=== PATIENT | female | born 1975 | race Two or more races ===

== ENCOUNTER 2021-04-01 13:28 | Emergency (ER) | payer SELFPAY ==
[~2021-04-01] VITALS: Ht 152.4 cm; Wt 80.3 kg
[2021-04-01] MEDS ORDERED: ASPIRIN CHEWABLE 81 MG TABLET. PO ONE (14:15)
[2021-04-01] MEDS ORDERED: IV RINGERS,LACTATED 1000ML 1,000 ML IV ONE (14:15)
--- NOTE | 2021-04-01 14:49 | RAD ---
EXAM: AP View of the chest DATE: 04/01/2021 2:25 PM INDICATION: Reason: lightheaded, R sided pain / Spl. Instructions: / History: COMPARISON: No Prior FINDINGS: The heart is not enlarged. Mediastinal and hilar contours are normal. No focal parenchymal airspace opacity. Low lung volumes. No pleural effusion or pneumothorax. IMPRESSION: 1. No radiographic evidence for acute cardiopulmonary process. Electronically signed by: Kermit Trujillo MD (04/01/2021 2:46 PM) CLAUDIA
[2021-04-01 14:53] LABS: BASO # 0.1 x10^3/uL (0.0-0.2); BASO % 1 % (0-3); EOS % 10 % (0-3); HEMATOCRIT 33.9 % (36.0-47.0); HEMOGLOBIN 10.7 g/dL (12.0-15.5); LYMPH # 1.9 x10^3/uL (1.0-4.8); LYMPH % 19 % (24-48); MEAN CORPUSCULAR HEMOGLOBIN 24 pg (25-35); MEAN CORPUSCULAR HGB CONC 32 g/dL (31-37); MEAN CORPUSCULAR VOLUME 76 fL (79-100); MONO # 0.6 x10^3/uL (0.0-1.1); MONO % 6 % (0-9); NEUT # 6.5 x10^3/uL (1.8-7.7); NEUT % 65 % (31-73); PLATELET COUNT 350 x10^3/uL (140-400); RED BLOOD COUNT 4.44 x10^6/uL (3.50-5.40); RED CELL DISTRIBUTION WIDTH 17.9 % (11.5-14.5)
[2021-04-01 15:00] LABS: CALCIUM 9.2 mg/dL (8.5-10.1); CREATININE 0.7 mg/dL (0.6-1.0); GFR 90.1; POTASSIUM 4.8 mmol/L (3.5-5.1)
[2021-04-01 15:06] LABS: ALBUMIN 3.7 g/dL (3.4-5.0); ALBUMIN/GLOBULIN RATIO 0.7 (1.0-1.7); TOTAL BILIRUBIN 0.5 mg/dL (0.2-1.0); TOTAL PROTEIN 8.8 g/dL (6.4-8.2)
--- NOTE | 2021-04-01 15:38 | PHYS DOC ---
Past Medical History Past Medical History: Diabetes-Type II, High Cholesterol, Hypertension Past Surgical History: Smoking Status: Never Smoker Alcohol Use: Occasionally Drug Use: None Adult General Chief Complaint Chief Complaint: DIZZY/LIGHT HEADED HPI HPI Patient is a 45 year old female with past medical history of DMII, HTN, HLD who presents with lightheadedness and right-sided neck, shoulder and arm pain that began yesterday. Patient states her pain is 8/10, constant and unchanged since onset. She denies any inciting events. There are no exacerbating or remitting factors. Patient has not taken any medication in effort to relieve this pain. She denies blurred vision, visual field deficits, eye pain, chest pain, palpitations, diaphoresis, nausea or vomiting. Review of Systems Review of Systems Constitutional: Denies fever or chills Eyes: See HPI HENT: Denies nasal congestion or sore throat Respiratory: Denies cough or shortness of breath Cardiovascular: No additional information not addressed in HPI GI: See HPI : Denies dysuria or hematuria Musculoskeletal: See HPI Integument: Denies rash or skin lesions Neurologic: Denies headache, focal weakness or sensory changes Endocrine: Denies polyuria or polydipsia All other systems were reviewed and found to be within normal limits, except as documented in this note. Current Medications Current Medications Current Medications Medications (Trade) Dose Ordered Sig/Makeda Start Time Stop Time Status Last Admin Dose Admin Aspirin (Aspirin Chewable) 324 mg 1X ONCE 04/01/21 14:15 04/01/21 14:24 DC 04/01/21 14:40 324 MG Ringer's Solution 1,000 ml @ 1,000 mls/hr 1X ONCE 04/01/21 14:15 04/01/21 15:14 DC 04/01/21 14:40 1,000 MLS/HR Allergies Allergies Allergies Coded Allergies Type Severity Reaction Last Updated Verified No Known Drug Allergies 04/01/21 No Physical Exam Physical Exam Constitutional: Obese, well groomed, no acute distress, non-toxic appearance. HENT: Normocephalic, atraumatic, bilateral external ears normal, nose normal. Eyes: EOMI, conjunctiva normal, no discharge. Neck: Normal range of motion, no tenderness, supple, no stridor. Cardiovascular: Heart rate regular rhythm, no murmur. Lungs & Thorax: Bilateral breath sounds clear to auscultation. Skin: Warm, dry, no erythema, no rash. Extremities: No tenderness, no cyanosis, no clubbing, ROM intact, no edema, no deformity, distal pulses 2+ and symmetrical. Neurologic: Alert and oriented x4, steady and symmetrical gait, no focal deficits noted. Current Patient Data Vital Signs Vital Signs Date Time Temp Pulse Resp B/P (MAP) Pulse Ox O2 Delivery O2 Flow Rate FiO2 04/01/21 16:32 88 137/65 (89) 99 Room Air 04/01/21 14:05 98.3 18 98.3 Lab Values Laboratory Tests Test 04/01/21 14:11 04/01/21 14:37 04/01/21 16:50 Glucose (Fingerstick) 109 mg/dL (70-99) H White Blood Count 10.0 x10^3/uL (4.0-11.0) Red Blood Count 4.44 x10^6/uL (3.50-5.40) Hemoglobin 10.7 g/dL (12.0-15.5) L Hematocrit 33.9 % (36.0-47.0) L Mean Corpuscular Volume 76 fL (79-100) L Mean Corpuscular Hemoglobin 24 pg (25-35) L Mean Corpuscular Hemoglobin Concent 32 g/dL (31-37) Red Cell Distribution Width 17.9 % (11.5-14.5) H Platelet Count 350 x10^3/uL (140-400) Neutrophils (%) (Auto) 65 % (31-73) Lymphocytes (%) (Auto) 19 % (24-48) L Monocytes (%) (Auto) 6 % (0-9) Eosinophils (%) (Auto) 10 % (0-3) H Basophils (%) (Auto) 1 % (0-3) Neutrophils # (Auto) 6.5 x10^3/uL (1.8-7.7) Lymphocytes # (Auto) 1.9 x10^3/uL (1.0-4.8) Monocytes # (Auto) 0.6 x10^3/uL (0.0-1.1) Eosinophils # (Auto) 1.0 x10^3/uL (0.0-0.7) H Basophils # (Auto) 0.1 x10^3/uL (0.0-0.2) Sodium Level 141 mmol/L (136-145) Potassium Level 4.8 mmol/L (3.5-5.1) Chloride Level 100 mmol/L (98-107) Carbon Dioxide Level 25 mmol/L (21-32) Anion Gap 16 (6-14) H Blood Urea Nitrogen 9 mg/dL (7-20) Creatinine 0.7 mg/dL (0.6-1.0) Estimated GFR (Cockcroft-Gault) 90.1 BUN/Creatinine Ratio 13 (6-20) Glucose Level 119 mg/dL (70-99) H Calcium Level 9.2 mg/dL (8.5-10.1) Total Bilirubin 0.5 mg/dL (0.2-1.0) Aspartate Amino Transferase (AST) 27 U/L (15-37) Alanine Aminotransferase (ALT) 31 U/L (14-59) Alkaline Phosphatase 75 U/L (46-116) Troponin I High Sensitivity 6 ng/L (4-50) Total Protein 8.8 g/dL (6.4-8.2) H Albumin 3.7 g/dL (3.4-5.0) Albumin/Globulin Ratio 0.7 (1.0-1.7) L Urine Collection Type Unknown Urine Color Yellow Urine Clarity Clear Urine pH 7.5 (<5.0-8.0) Urine Specific [place] <=1.005 (1.000-1.030) Urine Protein Negative mg/dL (NEG-TRACE) Urine Glucose (UA) Negative mg/dL (NEG) Urine Ketones (Stick) Negative mg/dL (NEG) Urine Blood Negative (NEG) Urine Nitrite Negative (NEG) Urine Bilirubin Negative (NEG) Urine Urobilinogen Dipstick 0.2 mg/dL (0.2 mg/dL) Urine Leukocyte Esterase Negative (NEG) Urine RBC 0 /HPF (0-2) Urine WBC Occ /HPF (0-4) Urine Squamous Epithelial Cells Mod /LPF Urine Bacteria Few /HPF (0-FEW) Laboratory Tests 04/01/21 14:37 Laboratory Tests 04/01/21 14:37 Laboratory Tests Test 04/01/21 14:11 04/01/21 14:37 04/01/21 16:50 Glucose (Fingerstick) 109 mg/dL (70-99) White Blood Count 10.0 x10^3/uL (4.0-11.0) Red Blood Count 4.44 x10^6/uL (3.50-5.40) Hemoglobin 10.7 g/dL (12.0-15.5) Hematocrit 33.9 % (36.0-47.0) Mean Corpuscular Volume 76 fL (79-100) Mean Corpuscular Hemoglobin 24 pg (25-35) Mean Corpuscular Hemoglobin Concent 32 g/dL (31-37) Red Cell Distribution Width 17.9 % (11.5-14.5) Platelet Count 350 x10^3/uL (140-400) Neutrophils (%) (Auto) 65 % (31-73) Lymphocytes (%) (Auto) 19 % (24-48) Monocytes (%) (Auto) 6 % (0-9) Eosinophils (%) (Auto) 10 % (0-3) Basophils (%) (Auto) 1 % (0-3) Neutrophils # (Auto) 6.5 x10^3/uL (1.8-7.7) Lymphocytes # (Auto) 1.9 x10^3/uL (1.0-4.8) Monocytes # (Auto) 0.6 x10^3/uL (0.0-1.1) Eosinophils # (Auto) 1.0 x10^3/uL (0.0-0.7) Basophils # (Auto) 0.1 x10^3/uL (0.0-0.2) Sodium Level 141 mmol/L (136-145) Potassium Level 4.8 mmol/L (3.5-5.1) Chloride Level 100 mmol/L (98-107) Carbon Dioxide Level 25 mmol/L (21-32) Anion Gap 16 (6-14) Blood Urea Nitrogen 9 mg/dL (7-20) Creatinine 0.7 mg/dL (0.6-1.0) Estimated GFR (Cockcroft-Gault) 90.1 BUN/Creatinine Ratio 13 (6-20) Glucose Level 119 mg/dL (70-99) Calcium Level 9.2 mg/dL (8.5-10.1) Total Bilirubin 0.5 mg/dL (0.2-1.0) Aspartate Amino Transf (AST/SGOT) 27 U/L (15-37) Alanine Aminotransferase (ALT/SGPT) 31 U/L (14-59) Alkaline Phosphatase 75 U/L (46-116) Troponin I High Sensitivity 6 ng/L (4-50) Total Protein 8.8 g/dL (6.4-8.2) Albumin 3.7 g/dL (3.4-5.0) Albumin/Globulin Ratio 0.7 (1.0-1.7) Urine Collection Type Unknown Urine Color Yellow Urine Clarity Clear Urine pH 7.5 (<5.0-8.0) Urine Specific [place] <=1.005 (1.000-1.030) Urine Protein Negative mg/dL (NEG-TRACE) Urine Glucose (UA) Negative mg/dL (NEG) Urine Ketones (Stick) Negative mg/dL (NEG) Urine Blood Negative (NEG) Urine Nitrite Negative (NEG) Urine Bilirubin Negative (NEG) Urine Urobilinogen Dipstick 0.2 mg/dL (0.2 mg/dL) Urine Leukocyte Esterase Negative (NEG) Urine RBC 0 /HPF (0-2) Urine WBC Occ /HPF (0-4) Urine Squamous Epithelial Cells Mod /LPF Urine Bacteria Few /HPF (0-FEW) EKG EKG EKG Interpreted by Dr. Andrew at 1420: Regular rate and rhythm 86 bpm with no ectopic beats. QT 366 ms/QTc 441 ms. No STEMI. Radiology/Procedures Radiology/Procedures PROCEDURE: CHEST AP ONLY EXAM: AP View of the chest DATE: 04/01/2021 2:25 PM INDICATION: Reason: lightheaded, R sided pain / Spl. Instructions: / History: COMPARISON: No Prior FINDINGS: The heart is not enlarged. Mediastinal and hilar contours are normal. No focal parenchymal airspace opacity. Low lung volumes. No pleural effusion or pneumothorax. IMPRESSION: 1. No radiographic evidence for acute cardiopulmonary process. Electronically signed by: Kermit Trujillo MD (04/01/2021 2:46 PM) [facility] Course & Med Decision Making Course & Med Decision Making Pertinent Labs and Imaging studies reviewed. (See chart for details) Patient is a 45-year-old female with past medical history of diabetes type 2, high blood pressure and high cholesterol. She presents today with lightheadedness and right-sided upper extremity pain. Work-up today will include cardiac work-up, blood work, urinalysis. Work-up today is very reassuring and unremarkable. Patient was informed of the lack of findings. Patient's daughter at bedside did mention that the patient has had increased stress recently, and they request resources for mental health providers. I informed them I would gladly refer them. Additionally, I provided information for orthopedic follow-up for persistent right upper extremity pain. Patient and her daughter understand and are agreeable to discharge plan. Dragon Disclaimer Dragon Disclaimer This electronic medical record was generated, in whole or in part, using a voice recognition dictation system. Departure Departure Impression: Primary Impression: Musculoskeletal pain of right upper extremity Disposition: HOME / SELF CARE / HOMELESS Condition: STABLE Referrals: JULIÁN ORTIZ MD Patient Instructions: Musculoskeletal Pain Additional Instructions: INSTRUCCIONES GENERALES DE RAVI DEL DEPARTAMENTO DE EMERGENCIA Ying por venir brandon al Departamento de Emergencias (ED) de [facility] y confiarnos garcia atencin. Confiamos en que haya tenido quintin experiencia positiva en nuestro Departamento de Emergencias. Si desea hablar con la gerencia del departamento, puede llamar al director al . CRISTIANE INSTRUCCIONES DE SEGUIMIENTO SON LAS SIGUIENTES: 1. Varghese un seguimiento con garcia mdico de atencin primaria. Si no tiene un mdico de cabecera, solicite quintin lista de recursos de mdicos o clnicas que puedan ayudarlo con la atencin de seguimiento. 2. El proveedor de emergencia langley interpretado cristiane estudios de imgenes, si se ordenaron. El especialista en imgenes de radiologa tambin los bony. Si hay un cambio en los hallazgos, se le notificar en 48 horas cuando sea posible. 3. Si se langley realizado quintin prueba de laboratorio o un cultivo, se revisarn cristiane resultados y se le notificar si necesita un cambio en el tratamiento. 4. Siga las instrucciones verbalizadas y consulte las copias impresas si es necesario. INSTRUCCIONES E INFORMACIN ADICIONALES: 1. Garcia atencin hoy langley sido supervisada por un mdico especialmente capacitado en atencin de emergencia. Muchos problemas requieren ms de quintin evaluacin para un diagnstico y tratamiento completos. Le recomendamos que programe garcia chelly de seguimiento segn lo recomendado para garantizar el tratamiento completo de garcia enfermedad o lesin. Si no puede obtener atencin de seguimiento y contina teniendo un problema, o si garcia condicin empeora, le recomendamos que regrese al servicio de urgencias. 2. No podemos determinar de manera hammonds garcia condicin por telfono ni podemos dominga consejos mdicos slidos por telfono. Por estas razones de seguridad, si llama para pedir consejo mdico, le pediremos que vaya al servicio de urgencias para quintin evaluacin adicional. 3. Si tiene alguna pregunta sobre estas instrucciones de ravi, llame al ED al . INFORMACIN DE SEGURIDAD: En inters de la seguridad, el bienestar y la prevencin de lesiones; le recomendamos que use garcia cinturn de seguridad, si fuma; bastante fumador, y alentamos a la roscoe a usar un holli protector para andar en bicicleta y otros eventos deportivos que presenten un mayor riesgo de lesiones en la anshu. SI CRISTIANE SNTOMAS EMPEORAN O SE DESARROLLAN NUEVOS SNTOMAS, O SI TIENE PREOCUPACIONES SOBRE GARCIA CONDICIN; O SI GARCIA CONDICIN EMPEORA MIENTRAS ESPERA GARCIA CHELLY DE SEGUIMIENTO; PNGASE EN CONTACTO CON GARCIA MDICO DE ATENCIN PRIMARIA, EL MDICO CUYO NOMBRE Y NMERO LE DIERON, O REGRESE AL ED INMEDIATAMENTE. BOWEN LAWSON Apr 01, 2021 15:38
[2021-04-01 17:02] LABS: BILIRUBIN,URINE NEGATIVE (NEG); CLARITY,URINE CLEAR; COLOR,URINE YELLOW; NITRITE,URINE NEGATIVE (NEG); PH,URINE 7.5 (<5.0-8.0); PROTEIN,URINE NEGATIVE (NEG-TRACE); UROBILINOGEN,URINE 0.2 mg/dL (0.2 mg/dL)
[2021-04-01 17:08] LABS: BACTERIA,URINE FEW /HPF (0-FEW); RBC,URINE 0 /HPF (0-2); WBC,URINE OCC /HPF (0-4)
[2021-04-01 18:13] VITALS: BP 133/77
--- NOTE | 2021-04-02 01:49 | EKG ---
[facility] [address] [place] [address] Test Date: 2021-04-01 Test Time: 14:18:09 Pat Name: MICHAEL COLE Department: Room: Gender: F Content Manager: : 1975 Requested By: BOWEN LAWSON Order Number: [id number] Reading MD: Gage Torres MD Measurements Intervals [place] Rate: 86 P: 38 WI: 142 QRS: 0 QRSD: 84 T: 18 QT: 366 QTc: 441 Interpretive Statements SINUS RHYTHM Electronically Signed On 04-03-2021 9:16:42 [employer] STILLMAN by Gage Torres MD
== END 2021-04-01 18:19 | disposition home or self-care (01) ==
LOC: ER 13:28
DX: M25.511 Pain in right shoulder (principal); M54.2 Cervicalgia; R42 Dizziness and giddiness; E11.9 Type 2 diabetes mellitus without complications; E78.00 Pure hypercholesterolemia, unspecified; I10 Essential (primary) hypertension; Z98.890 Other specified postprocedural states
CPT/HCPCS: 36415; 71045; 80053; 81001; 82962; 84484; 85025; 93005; 96360; 96361; 99285; J7120